=== PATIENT | male | born 1985 | race Caucasian/White ===

== ENCOUNTER 2022-05-30 02:57 | Emergency (ER) | payer MEDICAID ==
[~2022-05-30] VITALS: Ht 172.7 cm; Wt 83.9 kg
--- NOTE | 2022-05-30 03:51 | NUR ---
PATIENT BIBSELF C/O +SI NO PLAN WANT VOL PSYCH ADMIT. PT A/O X 4 . TOLERATING R/A WELL WITH NO RESP DISTRESS. PT AMBULATORY WITH STEADY GAIT. PT CHANGED IN GOWN, BELONGINGS COLLECTED AND PLACED IN LOCKER, AND WANDED BY SECURITY. SAFETY MEASURES IN PLACE.
--- NOTE | 2022-05-30 03:52 | NUR ---
COVID SWAB COLLECTED SENT TO LAB
--- NOTE | 2022-05-30 03:53 | NUR ---
URINE COLLECTED AND SENT TO LAB
[2022-05-30 04:20] LABS: BASOPHILS # (AUTO) 0.1 K/uL (0.0-0.2); BASOPHILS % (AUTO) 0.7 % (0.0-2.0); EOSINOPHILS % (AUTO) 0.6 % (0.0-6.0); HEMATOCRIT 42 % (39-51); HEMOGLOBIN 13.7 g/dL (13.5-17.5); LYMPHOCYTES # (AUTO) 1.9 K/uL (0.8-4.8); MEAN CORPUSCULAR HGB CONC 33 g/dl (31.0-36.0); MEAN CORPUSCULAR VOLUME 90 fL (80-96); MONOCYTES # (AUTO) 0.8 K/uL (0.1-1.30); MONOCYTES % (AUTO) 9.6 % (2.0-12.0); NEUTROPHILS # (AUTO) 5.8 K/uL (1.8-8.9); NEUTROPHILS % (AUTO) 67.1 % (43.0-81.0); PLATELET COUNT (AUTO) 262 K/uL (150-450); RED BLOOD CELL COUNT(AUTO) 4.68 MIL/uL (4.5-6.0); WHITE BLOOD COUNT (AUTO) 8.7 K/uL (4.3-11.0)
[2022-05-30 04:29] LABS: BILIRUBIN,URINE NEGATIVE (NEGATIVE); COLOR,URINE YELLOW (YELLOW); LEUKOCYTE ESTERASE ,URINE NEGATIVE (NEGATIVE); NITRITE, URINE NEGATIVE (NEGATIVE); PROTEIN,URINE TRACE mg/dl (NEGATIVE); UGLUCOSE NEGATIVE (NEGATIVE); UROBILINOGEN,URINE 0.2 EU/dL (0.2)
[2022-05-30 05:01] LABS: ALANINE AMINOTRANSFERASE 135 U/L (12-78); ALBUMIN 4.3 g/dL (3.4-5.0); ALCOHOL, BLOOD < 3 mg/dL (0-0); ALKALINE PHOSPHATASE 47 U/L (46-116); ASPARTATE AMINOTRANSFERASE 57 U/L (15-37); BILIRUBIN,DIRECT 0.2 mg/dL (0.0-0.2); BILIRUBIN,TOTAL 0.6 mg/dL (0.2-1.0); CALCIUM, SERUM 9.1 mg/dL (8.5-10.1); CARBON DIOXIDE 30 mmol/L (21-32); CHLORIDE 102 mmol/L (98-107); CREATININE 1.1 mg/dL (0.6-1.3); GLUCOSE 90 mg/dL (74-106); SODIUM SERUM 138 mmol/L (136-145); TOTAL PROTEIN, SERUM 8.7 g/dL (6.4-8.2); UREA NITROGEN, BLOOD 13 mg/dL (7-18)
[2022-05-30 05:08] LABS: ACETAMINOPHEN < 2 ug/ml (10-30)
--- NOTE | 2022-05-30 06:00 | NUR ---
FAXED CLINICALS TO [facility]
--- NOTE | 2022-05-30 07:58 | NUR ---
PATIENT A, OX4. AMBULATORY WITH STEADY GAITS. DENIED SI/ HI AND REPORTED FEELING WELL AND WILLING TO LEAVE. DR WEEMS MADE AWARE
--- NOTE | 2022-05-30 08:08 | NUR ---
pt is stable for discharge per MD. Patient discharged to home in stable condition. Written and verbal after care instructions given. Patient verbalizes understanding of instruction. pt was provided with bus TAB card.
[2022-05-30 08:09] VITALS: BP 141/75
== END 2022-05-30 08:10 | disposition home or self-care (01) ==
LOC: ER 03:02
DX: R45.851 Suicidal ideations (principal); F15.10 Other stimulant abuse, uncomplicated; Z20.822 Contact with and (suspected) exposure to COVID-19
CPT/HCPCS: 99285; 85025; 80048; 80076; 81003; 36415; 87426; 80143; 80320; 80307; C9803; G0480